=== PATIENT | male | born 1995 | race Caucasian/White ===

== ENCOUNTER 2017-10-18 00:29 | Inpatient (IN) | payer BC ==
--- NOTE | 2017-10-18 00:55 | ED ---
Psychiatric Complaint - HPI Summary HPI Summary: This patient is a 21 year old M presenting to [facility] with a chief complaint of SI without a plan since 0000. 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 Pt endorses taking 1 pill that he states is melatonin. Pt endorses that he wants bloodwork one. Pt denies PMHx SI and SIB. Pt A&O x3. Pt endorses using marijuana today. - History Of Current Complaint Chief Complaint: EDMentalHealth Time Seen by Provider: 10/18/17 00:48 Hx Obtained From: Patient Onset/Duration: Still Present Timing: Constant Severity Initially: Mild Severity Currently: Mild Character: Anxious Aggravating Factor(s): Recent Stress Alleviating Factor(s): Nothing Associated Signs And Symptoms: Positive: Negative Has Suicidal: Reports: Thoughts Has Homicidal: Denies: Thoughts Recent Stressor(s): School Ingestion History: Type/Name Of Drug - Marijuana, Amount Ingested - unknown, Approximate Time Of Ingestion - This PM, no more details - Allergies/Home Medications Allergies/Adverse Reactions: Allergies Allergy/AdvReac Type Severity Reaction Status Date / Time Penicillins Allergy Unknown Verified 10/18/17 00:57 Reaction Details Home Medications: Home Medications NK [No Home Medications Reported] 10/18/17 [History Confirmed 10/18/17] PMH/Surg Hx/FS Hx/Imm Hx Endocrine/Hematology History: Denies: Hx Sickle Cell Disease Cardiovascular History: Denies: Hx Myocardial Infarction Respiratory History: Denies: Hx Lung Cancer History: Denies: Hx Dialysis Musculoskeletal History: Denies: Hx Osteoporosis Sensory History: Denies: Hx Legally Blind, Hx Deafness Opthamlomology History: Denies: Hx Legally Blind EENT History: Denies: Hx Deafness Neurological History: Denies: Hx CVA Psychiatric History: Denies: Hx Suicide Attempt - Family History Known Family History: Negative: Blood Disorder - Social History Occupation: Student Lives: Dormitory/Roommates Hx Substance Use: Yes Substance Use Type: Reports: Marijuana Review of Systems Negative: Fever Positive: no symptoms reported Positive: Anxious, Depressed, Other - SI All Other Systems Reviewed And Are Negative: Yes Physical Exam - Summary Physical Exam Summary: Appearance: Well-appearing, Well-nourished, lying in bed comfortably Skin: Warm, dry, no obvious rash Eyes: sclera anicteric, no conjunctival pallor ENT: mucous membranes moist, pharynx appears normal Neck: Supple, nontender Respiratory: Clear to auscultation, no signs of respiratory distress Cardiovascular: Normal S1, S2. No murmurs. Normal distal pulses in tibial and radial bilaterally. Abdomen: Soft, nontender, normal active bowel sounds present Musculoskeletal: Normal, Strength/ROM Intact Neurological: A&Ox3, awake and alert, mentation is normal, speech is fluent and appropriate Psychiatric: affect is very flat, latencies in speech Triage Information Reviewed: Yes Vital Signs Reviewed: Yes Diagnostics - Laboratory Result Diagrams: 10/18/17 00:57 10/18/17 00:57 Lab Statement: Any lab studies that have been ordered have been reviewed, and results considered in the medical decision making process. Course/Dx - Course Course Of Treatment: Patient is medically cleared for mental health evaluation - Differential Dx/Clinical Impression Provider Diagnosis: Psychosis Discharge - Sign-Out/Discharge Documenting (check all that apply): Patient Departure - Discharge Plan Condition: Guarded Disposition: [facility]YCHIATRIC FACILITY-[facility] Referrals: No Primary Care Phys,NOPCP [Primary Care Provider] - - Billing Disposition and Condition Condition: GUARDED Disposition: Psychiatric Facility [facility] - Attestation Statements Document Initiated by Scribe: Yes Documenting Scribe: Jarad Villagomez Provider For Whom Maco is Documenting (Include Credential): Dr. Oscar Mcbride MD Scribe Attestation: Jarad Mancia scribed for Dr. Oscar Mcbride MD on 10/18/17 at 0701. Scribe Documentation Reviewed: Yes Provider Attestation: The documentation as recorded by the Jarad de león accurately reflects the service I personally performed and the decisions made by me, Dr. Oscar Mcbride MD
[2017-10-18 01:02] LABS: ABS Basophils 0 10^3/ul (0-0.2); ABS Eosinophils 0.1 10^3/ul (0-0.6); ABS Lymphocytes 1.2 10^3/ul (1.0-4.8); ABS Monocytes 0.8 10^3/ul (0-0.8); ABS Neutrophils 7.1 10^3/ul (1.5-7.7); ABS Nucleated RBC 0 10^3/ul; Eosinophil % 0.8 % (0-6); Hematocrit 43 % (42-52); Lymphocyte % 12.8 % (25-47); Mean Corpuscular HGB Conc 35 g/dl (31-36); Mean Corpuscular Hemoglobin 31 pg (27-31); Mean Corpuscular Volume 87 fL (80-94); Mean Platelet Volume 9.2 um3 (7.4-10.4); Nucleated Red Blood Cells % 0.1; Platelet Count 223 10^3/ul (150-450); Red Cell Distribution Width 13 % (10.5-15); White Blood Count 9.2 10^3/ul (3.5-10.8)
[2017-10-18 01:19] LABS: EGFR Non-African American 96.3 (>60)
--- NOTE | 2017-10-18 08:43 | PN ---
ED Flex Patient Progress Note Subjective: This is a 21 year-old M who is pending admission to [facility] secondary to SI in the face of stress at [employer] ( sophomore). No plan. . Pt offers no complaints at this time. He has eaten breakfast and had snacks/ drinks. His Potassium was a little low on initial labs however seeing his recent food intake and lack of sx (ie. cramping, CP), will refrain from K + replacement. Objective: Vitals: Most recent vital signs documented below. General NAD, Alert and oriented x3. Heart: rrr, S1/S2 Lungs: CTa, BREATHING EASILY AB: soft, NTTP, +BS INteg: warm, dry - no signs of injury EL: moving well PSYCH: low mood but polite, pleasant and cooperative Laboratory: Current laboratory results documented below. Assessment: SI w/ stress Plan: Pending psychiatric admit here pending opening on floor. Will follow up daily _while in ED____. Vital Signs Temp Pulse Resp BP Pulse Ox 99.1 F 99 17 144/92 98 10/18/17 07:05 10/18/17 07:05 10/18/17 07:05 10/18/17 07:05 10/18/17 07:05 Lab Results - Entire Visit 10/18/17 10/18/17 10/18/17 01:22 00:57 00:57 WBC 9.2 RBC 4.90 Hgb 15.0 Hct 43 MCV 87 MCH 31 MCHC 35 RDW 13 Plt Count 223 MPV 9.2 Neut % (Auto) 76.9 Lymph % (Auto) 12.8 L [place] % (Auto) 9.0 H Eos % (Auto) 0.8 Baso % (Auto) 0.5 Absolute Neuts (auto) 7.1 Absolute Lymphs (auto) 1.2 Absolute Monos (auto) 0.8 Absolute Eos (auto) 0.1 Absolute Basos (auto) 0 Absolute Nucleated RBC 0 Nucleated RBC % 0.1 Sodium 139 Potassium 3.2 L Chloride 106 Carbon Dioxide 26 Anion Gap 7 BUN 14 Creatinine 1.00 Est GFR ( Amer) 116.5 Est GFR (Non-Af Amer) 96.3 BUN/Creatinine Ratio 14.0 Glucose 145 H Calcium 9.6 Total Bilirubin 0.70 AST 17 ALT 20 Alkaline Phosphatase 59 Total Protein 6.7 Albumin 4.5 Globulin 2.2 Albumin/Globulin Ratio 2.0 Urine Opiates Screen None detected Acetaminophen < 15 Ur Barbiturates Screen None detected Ur Phencyclidine Scrn None detected Ur Amphetamines Screen None detected U Benzodiazepines Scrn None detected Urine Cocaine Screen None detected U Cannabinoids Screen None detected Serum Alcohol < 10
[2017-10-18] MEDS ORDERED: Acetaminophen TAB* 325 MG PO PRN (10:42)
[2017-10-18] MEDS ORDERED: Al Hydrox/Mg Hydrox/Simet LIQ* 30 ML UDC PO PRN (10:42)
[2017-10-18] MEDS: LORazepam TAB(*) 1 MG PO PRN (13:30)
[2017-10-18] MEDS: Divalproex ER TAB(*) 500 MG PO SCH (21:00)
[2017-10-18] MEDS: risperiDONE TAB* 1 MG PO SCH (21:01)
[2017-10-19] MEDS ORDERED: diPHENhydraMINE PO* 25 MG PO PRN (10:38)
[2017-10-19] MEDS ORDERED: diPHENhydraMINE PO* 25 MG ONE (10:58)
--- NOTE | 2017-10-19 18:14 | HP ---
HISTORY AND PHYSICAL: DATE OF ADMISSION: 10/18/17 PROVIDER: Stacey Gamino NP, in Psychiatry SUPERVISING PHYSICIAN: Chintan Gomez MD * (DICTATED BY STACEY GAMINO NP ) JUSTIFICATION FOR ADMISSION: The patient is in need of 24-hour supervision and care secondary to suicidal ideation and disorganization. CHIEF COMPLAINT: "You don't think I know who my biological parents are, do you? 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 David goes by the name, Kehinde. Kehinde states that he has been up for several days in a row 3 to 4 days. He has had no sleep and he states that he has felt more energy at that time. He declares he has "bipolarish symptoms." He tells a very confused story including taking a pill, which he states was melatonin and getting no ability to sleep. He is suspicious and paranoid. It is difficult to get information out of him because he is largely unwilling to speak to me and he contradicts the information that is gathered from the emergency department. Kehinde apparently reported in the past that he has had suicidal ideations at the age 18. He reported that in the emergency department, but denied it on the unit. He states he feels safe here. He is bizarre and somewhat disorganized. He is pleasant enough, but gets irritable rapidly. He is highly anxious. He is describing manic symptoms quite adequately on his own, like not sleeping, having lots of energy, not feeling tired. It appears that that episode is over as he is now anxious and sleepy and is trying to sleep at this time. When attempting to give him Benadryl to help him sleep, he became very wary and concerned about that and refused it. PAST PSYCHIATRIC HISTORY: Kehinde reports that last year he had a manic episode that went untreated. I am looking forward to talking to his parents in order to see about further information. SUBSTANCE ABUSE HISTORY: He denies alcohol and cigarettes. States that he does smoke marijuana, but his drug screen was negative for that. PAST MEDICAL HISTORY: He has not disclosed any of that. FAMILY HISTORY: Again, I am waiting to see his mother and father. SOCIAL HISTORY: He was born in [place], [place] and moved around that area and now lives in a smaller town in [place]. He is a sophomore at [employer]. He appears to be somewhat intimidated by his peers, but that is not clear at this point. REVIEW OF SYMPTOMS: The patient reports feeling fatigued. He denies shortness of breath, heat or cold intolerance, chest pain, or abdominal pain. He denies neurological symptoms. He denies fevers or changes in weight. PHYSICAL EXAMINATION VITAL SIGNS: On 10/18/17, at 1304, his temperature was 98.3, pulse 113, respirations 16, O2 sat 95%, blood pressure 148/99, which did come down on 10/19, at 8 in the morning to 121/75. For further exam data, please see the emergency department records. LABORATORY DATA: Laboratory data is largely within normal limits. The only relevant exceptions would be lymphocyte percentage is low at 12.8 and monocyte percentage is high at 9, potassium is low at 3.2. Incidentally, his hemoglobin A1c is 4.9. His triglycerides are 80, cholesterol 136, LDL cholesterol 84, HDL cholesterol 35.9. I do not see a TSH and I will order that. MENTAL STATUS EXAMINATION: This is a tall, slim, young man with naida hair, who is generally cooperative, but gets frightened. He is calm, but scared. His speech is of normal rate, tone, and volume. He is dysthymic. He has a constricted affect. His thought process seems to be logical, but delusions are present. He states he is not homicidal. He denies suicidality, but he did endorse it in the emergency department. He may be having hallucinations, it is unclear at this time. His insight is fair. His judgement is fair. He is alert and oriented x3. DIAGNOSIS: Bentley I: Bipolar disorder type 1. IMPRESSION: This is a 21-year-old young man who is from [place], who comes to [employer] and has a second manic episode in about a year, this time requiring treatment. PLAN: The patient is admitted to the adult behavioral health unit and placed on q.15-minute checks for his own safety. Kehinde is encouraged to participate in supportive milieu, individual, and group therapy. Estimated length of stay is 5 to 7 days. We will titrate medications to efficacy and monitor for mood and thought content. Discharge planning will include family involvement and outpatient providers. STACEY GAMINO NP [id number]/CPS #: [id number] SANGITA
[2017-10-19] MEDS: risperiDONE TAB* 1 MG PO SCH (21:13)
[2017-10-19] MEDS: Divalproex ER TAB(*) 500 MG PO SCH (21:13)
[2017-10-20] MEDS: LORazepam TAB(*) 1 MG PO PRN (09:16)
--- NOTE | 2017-10-20 17:39 | PN ---
Subjective - Subjective Date of Service: 10/20/17 Service Type: 25222 Hosp care 25 min moderate complexity Subjective: Met with "Kehinde's" parents at length and with Kehinde and his parents together for a shorter time. Kehinde remains disorganized, but he seems to settle and become more relaxed with their presence. He was seen spending time with another patient, "Yesenia," for some time and seemed happy and to be having a good time. Kehinde is not always on target with conversation, but he is less suspicious and paranoid than he was initially. Objective - Appearance Appearance: Healthy Appearing Dysmorphic Features: No Hygiene: Normal Grooming: Fairly Well Kept - Behavior Psychomotor Activities: Normal Exhibits Abnormal Movement: No - Attitude and Relatedness Attitude and Relatedness: Psychotically Related Eye Contact: Good - Speech Quality: Unpressured Latencies: Short Quantity: Terse - Mood Patient's Decription of Mood: "Good" - Affect Observed Affect: Good Affect Consistent with: Euthymia - Thought Process Patient's Thought Process: Disorganized Thought Content: No Passive Wish, No Suicidal Planning, No Homicidal Ideation, No Paranoid Ideation - Sensorium Experiencing Hallucinations: No, Sensorium is Clear Type of Hallucinations: Visual: No, Auditory: No, Command: No - Level of Consciousness Level of Consciousness: Alert Orientation: Yes Intact, Yes Orientated to Time, Yes Orientated to Place, Yes Orientated to Person - Impulse Control Impulse Control: Impaired - Insight and Judgement Insight and Judgement: Impaired - Group Participation Particating in Group Activities: No - Medication Management Medication Management Adherence: Yes - Additional Observations Comments: "Kehinde" is happy and eager to be with his family. He is taking medications appropriately and seems to understand their purpose, at least on a superficial level. Assessment - Assessment Merits Inpatient Hospitalization: For Immediate Safety Inpatient DSM-V Dx: F31.2 Clinical Impression: Kehinde, while pleasant, is clearly psychotic. He has improved with sleep and medication, but still requires hospitalization until the psychosis resolves and he can be relied upon to be able to make decisions clearly. He is currently lacking insight and judgment and has made disorganized decisions, such as walking into a patent's room in the middle of the night and watching her. Plan - Plan Treatment Plan: Name: ELENA CUELLAR Birthdate: 1995 [id number] Medications: Current Medications Acetaminophen (Tylenol Tab*) 650 mg PO Q4H PRN PRN Reason: for pain; or Temp >101 F Al Hydrox/Mg Hydrox/Simethicone (Maalox Plus*) 30 ml PO Q4H PRN PRN Reason: INDIGESTION Diphenhydramine HCl (Benadryl Po*) 25 mg PO Q4H PRN PRN Reason: ANXIETY Divalproex Sodium (Depakote Er Tab(*)) 1,000 mg PO BEDTIME [facility] Lorazepam (Ativan Tab(*)) 1 mg PO Q6H PRN PRN Reason: ANXIETY Last Admin: 10/18/17 13:30 Dose: 1 mg Risperidone (Risperdal*) 2 mg PO BEDTIME [facility] - Discharge Plan Discharge Plan: Outpatient Follow Up Additional Comments: After speaking with Kehinde's parents, it is clear that they are eager to take him home to [place]. It is important for Kehinde to improve before he goes, however, so a certain discharge date is impossible to establish at this time. In the meantime, medication dosages will be increased to 1000 mg of Depakote and 2 mg of Risperdal.
[2017-10-20] MEDS: Divalproex ER TAB(*) 500 MG PO SCH (21:21)
[2017-10-20] MEDS: risperiDONE TAB* 1 MG PO SCH (21:22)
--- NOTE | 2017-10-21 16:11 | PN ---
Subjective - Subjective Date of Service: 10/21/17 Service Type: 18687 Hosp care 35 min high complexity Subjective: Kehinde is reticent to discuss his true feelings with me, his parents, or Candace Umana LCSW. To the rest of the staff, however, he is much more willing to reveal that he continues to hear voices and think of suicide. He did try to wander into another patient's room last night and the constant observation continues related to that level of disorganization. Objective - Appearance Appearance: Healthy Appearing Dysmorphic Features: No Hygiene: Normal Grooming: Fairly Well Kept - Behavior Psychomotor Activities: Normal Exhibits Abnormal Movement: No - Attitude and Relatedness Attitude and Relatedness: Psychotically Related Eye Contact: Good - Speech Quality: Unpressured Latencies: Short Quantity: Terse - Mood Patient's Decription of Mood: "Okay" - Affect Observed Affect: Fair Affect Consistent with: Dysphoria - Thought Process Patient's Thought Process: Disorganized Thought Content: Yes Passive Wish, Yes Suicidal Planning, Yes Paranoid Ideation, No Homicidal Ideation - Sensorium Experiencing Hallucinations: No, Sensorium is Clear Type of Hallucinations: Visual: No, Auditory: Yes, Command: Yes - Level of Consciousness Level of Consciousness: Alert Orientation: Yes Intact, Yes Orientated to Time, Yes Orientated to Place, Yes Orientated to Person - Impulse Control Impulse Control: Impaired - Insight and Judgement Insight and Judgement: Poor - Group Participation Particating in Group Activities: No - Medication Management Medication Management Adherence: Yes - Additional Observations Comments: "Kehinde" is seclusive to his room. He is resting most of the day. He appears to be a bit sad and perhaps frightened today. Assessment - Assessment Merits Inpatient Hospitalization: For Immediate Safety Inpatient DSM-V Dx: F31.2 Clinical Impression: Kehinde, while pleasant, is clearly psychotic. He has improved with sleep and medication, but still requires hospitalization until the psychosis resolves and he can be relied upon to be able to make decisions clearly. He is currently lacking insight and judgment and has made disorganized decisions. His progress throughout the next few days will be monitored. Although his parents would like to take him home, erring on the side of caution and considering the acuity of Kehinde's illness at this time, we will keep him in the hospital. Plan - Plan Treatment Plan: Name: ELENA CUELLAR Birthdate: 1995 [id number] Medications: Current Medications Acetaminophen (Tylenol Tab*) 650 mg PO Q4H PRN PRN Reason: for pain; or Temp >101 F Al Hydrox/Mg Hydrox/Simethicone (Maalox Plus*) 30 ml PO Q4H PRN PRN Reason: INDIGESTION Diphenhydramine HCl (Benadryl Po*) 25 mg PO Q4H PRN PRN Reason: ANXIETY Divalproex Sodium (Depakote Er Tab(*)) 1,000 mg PO BEDTIME [facility] Last Admin: 10/20/17 21:21 Dose: 1,000 mg Lorazepam (Ativan Tab(*)) 1 mg PO Q6H PRN PRN Reason: ANXIETY Last Admin: 10/18/17 13:30 Dose: 1 mg Risperidone (Risperdal*) 2 mg PO BEDTIME [facility] Last Admin: 10/20/17 21:22 Dose: 2 mg - Discharge Plan Discharge Plan: Outpatient Follow Up Additional Comments: After speaking with Kehinde's parents, it is clear that they are eager to take him home to [place]. It is important for Kehinde to improve before he goes, however, so a certain discharge date is impossible to establish at this time. Kehinde's parents are on board with keeping him until it is safe to travel and keep him at home.
[2017-10-21] MEDS: risperiDONE TAB* 1 MG PO SCH (21:50)
[2017-10-21] MEDS: Divalproex ER TAB(*) 500 MG PO SCH (21:51)
[2017-10-22] MEDS ORDERED: Ibuprofen TAB* 400 MG PO PRN (11:02)
--- NOTE | 2017-10-22 11:46 | PN ---
Subjective - Subjective Date of Service: 10/22/17 Service Type: 67875 Hosp care 15 min low complexity Subjective: Met briefly with Kehinde twice. he is disorganized and reports he doesn't feel well. He seems to struggle to find words and express what concepts are in his head. We sent him to get an MRI, but he could not tolerate the noise and possibly the enclosure. Kehinde is struggling with anxiety, allergies, and insomnia. Objective - Appearance Appearance: Healthy Appearing Dysmorphic Features: No Hygiene: Normal Grooming: Fairly Well Kept - Behavior Psychomotor Activities: Normal Exhibits Abnormal Movement: No - Attitude and Relatedness Attitude and Relatedness: Psychotically Related Eye Contact: Good - Speech Quality: Unpressured Latencies: Short Quantity: Terse - Mood Patient's Decription of Mood: not good - Affect Observed Affect: Depressed Affect Consistent with: Dysphoria - Thought Process Patient's Thought Process: Disorganized Thought Content: Yes Passive Wish, Yes Suicidal Planning, No Homicidal Ideation, No Paranoid Ideation - Sensorium Type of Hallucinations: Auditory: Yes - yesterday. He has not answered today., Command: Yes - Level of Consciousness Level of Consciousness: Alert Orientation: Yes Intact, Yes Orientated to Time, Yes Orientated to Place, Yes Orientated to Person - Impulse Control Impulse Control: Impaired - Insight and Judgement Insight and Judgement: Impaired - Group Participation Particating in Group Activities: No - Medication Management Medication Management Adherence: Yes - Additional Observations Comments: "Kehinde" is seclusive to his room. He is resting most of the day. He was visited by his parents. He continues to be psychotic. He is also depressed. He is not able to answer me about his level of depression and if he is planning for suicide, but he was able to converse with other staff members yesterday and conveyed that message. Assessment - Assessment Merits Inpatient Hospitalization: For Immediate Safety, For Discharge Planning Inpatient DSM-V Dx: F31.2 Clinical Impression: Kehinde, while pleasant, is clearly psychotic. He has improved with sleep and medication, but still requires hospitalization until the psychosis resolves and he can be relied upon to be able to make decisions clearly. He is currently lacking insight and judgment and has made disorganized decisions. His progress throughout the next few days will be monitored. Although his parents would like to take him home, erring on the side of caution and considering the acuity of Kehinde's illness at this time, we will keep him in the hospital. He continues to struggle with complex questions and has an anxious affect. Plan - Plan Treatment Plan: Name: ELENA CUELLAR Birthdate: 1995 [id number] Continued Medication Management: Different Medication Medications: Current Medications Acetaminophen (Tylenol Tab*) 650 mg PO Q4H PRN PRN Reason: for pain; or Temp >101 F Al Hydrox/Mg Hydrox/Simethicone (Maalox Plus*) 30 ml PO Q4H PRN PRN Reason: INDIGESTION Diphenhydramine HCl (Benadryl Po*) 25 mg PO Q4H PRN PRN Reason: ANXIETY Divalproex Sodium (Depakote Er Tab(*)) 1,000 mg PO BEDTIME ON LICENSE OF [facility] Last Admin: 10/21/17 21:51 Dose: 1,000 mg Ibuprofen (Motrin Tab*) 400 mg PO Q6H PRN PRN Reason: PAIN Lorazepam (Ativan Tab(*)) 1 mg PO Q6H PRN PRN Reason: ANXIETY Last Admin: 10/18/17 13:30 Dose: 1 mg Paliperidone (Invega Er Tab*) 6 mg PO BEDTIME [facility] - Discharge Plan Discharge Plan: Outpatient Follow Up Additional Comments: After speaking with Kehinde's parents, it is clear that they are eager to take him home to [place]. It is important for Kehinde to improve before he goes, however, so a certain discharge date is impossible to establish at this time. Kehinde's parents are on board with keeping him until it is safe to travel and keep him at home. Today, we will change medications and begin Invega 6 mg, a more aggressive approach that might bring Kehinde closer to his baseline. In addition, as Kehinde has complained of allergy symptoms, anxiety, and insomnia, we will increase Benadryl to 50 mg Q4 hours.
[2017-10-22] MEDS ORDERED: diPHENhydraMINE PO* 25 MG PO PRN (12:46)
[2017-10-22] MEDS: Paliperidone ER TAB* 6 MG TAB.ER PO SCH (21:23)
[2017-10-22] MEDS: Divalproex ER TAB(*) 500 MG PO SCH (21:23)
[2017-10-22] MEDS ORDERED: Magnesium CITRATE* 300 ML BTL PO ONE (21:30)
[2017-10-23] MEDS: Docusate CAP* 100 MG PO SCH ×2 (07:21→09:20)
--- NOTE | 2017-10-23 17:15 | PN ---
Subjective - Subjective Date of Service: 10/23/17 Service Type: [id number] Hosp care 15 min low complexity Subjective: Kehinde doesn't appear to have improve. He is in bed most of the time and reports that he is depressed, anxious and contemplating to strangulate self to . Also hearing his parents voices telling him something that he cannot articulate. Says he couldn't sleep last night. His stomach is hurting. On exam the epigastric area is tender. Maalox was given and Nursing will place him on continuous obs. Objective - Appearance Appearance: Healthy Appearing Dysmorphic Features: No Hygiene: Normal Grooming: Fairly Well Kept - Behavior Psychomotor Activities: Abnormal-Decreased Exhibits Abnormal Movement: No - Attitude and Relatedness Attitude and Relatedness: Superficially Cooperative Eye Contact: Poor - Speech Quality: Unpressured Latencies: Long Quantity: Terse - Mood Patient's Decription of Mood: "Anxious" - Affect Observed Affect: Depressed Affect Consistent with: Dysphoria - Thought Process Patient's Thought Process: Coherent, Circumstantial, Impoverished Thought Content: Yes Passive Wish, Yes Suicidal Planning - strangulate self, No Homicidal Ideation, No Paranoid Ideation - Sensorium Experiencing Hallucinations: Yes Type of Hallucinations: Visual: No, Auditory: Yes, Command: No - Level of Consciousness Level of Consciousness: Alert Orientation: Yes Intact, Yes Orientated to Time, Yes Orientated to Place, Yes Orientated to Person - Impulse Control Impulse Control: Tenuous - Insight and Judgement Insight and Judgement: Poor - Group Participation Particating in Group Activities: No - Medication Management Medication Management Adherence: Yes Assessment - Assessment Merits Inpatient Hospitalization: For Immediate Safety, For Stabilization, Pending Safe DC Plan Inpatient DSM-V Dx: F31.2 Clinical Impression: Still severely depressed with suicidal thoughts and plan. Not safe for discharge. Plan - Plan Treatment Plan: Name: ELENA CUELLAR Birthdate: 1995 [id number] Continued Medication Management: Continue Outpt Medication Medications: Current Medications Acetaminophen (Tylenol Tab*) 650 mg PO Q4H PRN PRN Reason: for pain; or Temp >101 F Al Hydrox/Mg Hydrox/Simethicone (Maalox Plus*) 30 ml PO Q4H PRN PRN Reason: INDIGESTION Diphenhydramine HCl (Benadryl Po*) 50 mg PO Q4H PRN PRN Reason: Anxiety/allergies/sleep Last Admin: 10/23/17 13:47 Dose: 50 mg Divalproex Sodium (Depakote Er Tab(*)) 1,000 mg PO BEDTIME [facility] Last Admin: 10/22/17 21:23 Dose: 1,000 mg Divalproex Sodium (Depakote Er Tab(*)) 250 mg PO BEDTIME [facility] Docusate Sodium (Colace Cap*) 100 mg PO DAILY [facility] Last Admin: 10/23/17 09:20 Dose: Not Given Ibuprofen (Motrin Tab*) 400 mg PO Q6H PRN PRN Reason: PAIN Lorazepam (Ativan Tab(*)) 1 mg PO Q4H PRN PRN Reason: Anxiety/insomnia Paliperidone (Invega Er Tab*) 6 mg PO BEDTIME [facility] Last Admin: 10/22/17 21:23 Dose: 6 mg - Discharge Plan Discharge Plan: Outpatient Follow Up Outpatient Program: Counseling/Psych Services at [place]
[2017-10-23] MEDS: Paliperidone ER TAB* 6 MG TAB.ER PO SCH (20:58)
[2017-10-23] MEDS: LORazepam TAB(*) 1 MG PO PRN (20:58)
[2017-10-23] MEDS ORDERED: Divalproex ER TAB(*) 250 MG PO SCH (21:00)
[2017-10-23] MEDS: Divalproex ER TAB(*) 500 MG PO SCH (22:05)
[2017-10-24] MEDS: Docusate CAP* 100 MG PO SCH (09:54)
[2017-10-24] MEDS: LORazepam TAB(*) 1 MG PO PRN (20:13)
[2017-10-24] MEDS: Divalproex Sprinkle CAP* 125 MG PO SCH (20:14)
[2017-10-24] MEDS: Paliperidone ER TAB* 6 MG TAB.ER PO SCH (20:21)
[2017-10-25] MEDS: Docusate CAP* 100 MG PO SCH (13:32)
[2017-10-25] MEDS: Divalproex Sprinkle CAP* 125 MG PO SCH ×3 (13:32→20:14)
--- NOTE | 2017-10-25 18:02 | PN ---
Subjective - Subjective Date of Service: 10/25/17 Service Type: 72034 Hosp care 15 min low complexity Subjective: Today is out of bed and with his parents. Per Nursing he refused his AM Depakote at first and then took after his parents insisted. He apparently continues to be depressed and suicidal with a plan to strangulate self. Continuous observation is still in place. Objective - Appearance Appearance: Healthy Appearing, Thin Framed Dysmorphic Features: No Hygiene: Normal Grooming: Fairly Well Kept - Behavior Psychomotor Activities: Abnormal-Decreased Exhibits Abnormal Movement: No - Attitude and Relatedness Attitude and Relatedness: Appropriate Eye Contact: Fair - Speech Quality: Unpressured Latencies: Normal Quantity: Appropriate - Mood Patient's Decription of Mood: "Sad" - Affect Observed Affect: Constricted - Thought Process Patient's Thought Process: Coherent, Goal Directed Thought Content: Yes Passive Wish, Yes Suicidal Planning - strangulate self. - Sensorium Experiencing Hallucinations: No, Sensorium is Clear Type of Hallucinations: Visual: No, Auditory: No, Command: No - Level of Consciousness Level of Consciousness: Alert Orientation: Yes Intact, Yes Orientated to Time, Yes Orientated to Place, Yes Orientated to Person - Impulse Control Impulse Control: Tenuous - Insight and Judgement Insight and Judgement: Poor - Group Participation Particating in Group Activities: No - Medication Management Medication Management Adherence: Partial Assessment - Assessment Merits Inpatient Hospitalization: For Immediate Safety, For Stabilization, Pending Safe DC Plan Inpatient DSM-V Dx: F31.2 Clinical Impression: Still severely depressed with suicidal thoughts and plan. Not safe for discharge. Plan - Plan Treatment Plan: Name: ELENA CUELLAR Birthdate: 1995 [id number] Continued Medication Management: Continue Outpt Medication Medications: Current Medications Acetaminophen (Tylenol Tab*) 650 mg PO Q4H PRN PRN Reason: for pain; or Temp >101 F Al Hydrox/Mg Hydrox/Simethicone (Maalox Plus*) 30 ml PO Q4H PRN PRN Reason: INDIGESTION Diphenhydramine HCl (Benadryl Po*) 50 mg PO Q4H PRN PRN Reason: Anxiety/allergies/sleep Last Admin: 10/23/17 13:47 Dose: 50 mg Divalproex Sodium (Depakote Sprinkle Cap*) 375 mg PO TID [facility] Last Admin: 10/25/17 16:26 Dose: 375 mg Docusate Sodium (Colace Cap*) 100 mg PO DAILY [facility] Last Admin: 10/25/17 13:32 Dose: Not Given Ibuprofen (Motrin Tab*) 400 mg PO Q6H PRN PRN Reason: PAIN Lorazepam (Ativan Tab(*)) 1 mg PO Q4H PRN PRN Reason: Anxiety/insomnia Last Admin: 10/24/17 20:13 Dose: 1 mg Paliperidone (Invega Er Tab*) 6 mg PO BEDTIME [facility] Last Admin: 10/24/17 20:21 Dose: 6 mg - Discharge Plan Discharge Plan: Outpatient Follow Up Outpatient Program: [facility]
[2017-10-25] MEDS: Paliperidone ER TAB* 6 MG TAB.ER PO SCH (20:14)
[2017-10-26] MEDS: Divalproex Sprinkle CAP* 125 MG PO SCH ×3 (10:54→20:46)
[2017-10-26] MEDS: Docusate CAP* 100 MG PO SCH (10:54)
[2017-10-26] MEDS ORDERED: ALPRAZolam TAB* 0.5 MG PO ONE (12:54)
--- NOTE | 2017-10-26 14:14 | PN ---
Subjective - Subjective Date of Service: 10/26/17 Service Type: 18093 Hosp care 35 min high complexity Subjective: Met with Kehinde, his parents, and Candace Umana LCSW. Kehinde appears brighter and more coherent for the most part, but then he admits that he is seeing "signs" and "lots of red" which is indicating to him that he needs to leave. In this context, it is difficult to make a plan for him to go home with his parents, although they are very attentive and concerned and eager to take him home. He recently reported that he wanted to strangle himself with a sheet and has been wandering into other people's rooms. He doesn't recall these statements or actions and appears ashamed that they have occurred. Objective - Appearance Appearance: Healthy Appearing Dysmorphic Features: No Hygiene: Normal Grooming: Fairly Well Kept - Behavior Psychomotor Activities: Normal Exhibits Abnormal Movement: No - Attitude and Relatedness Attitude and Relatedness: Psychotically Related Eye Contact: Fair - Speech Quality: Unpressured Latencies: Short Quantity: Terse - Mood Patient's Decription of Mood: "Okay" - Affect Observed Affect: Fair Affect Consistent with: Dysphoria - Thought Process Patient's Thought Process: Coherent, Impoverished Thought Content: Yes Passive Wish, Yes Suicidal Planning, No Homicidal Ideation, No Paranoid Ideation - Sensorium Experiencing Hallucinations: Yes Type of Hallucinations: Visual: Yes, Auditory: Yes, Command: Yes - Level of Consciousness Level of Consciousness: Alert Orientation: Yes Intact, Yes Orientated to Time, Yes Orientated to Place, Yes Orientated to Person - Impulse Control Impulse Control: Impaired - Insight and Judgement Insight and Judgement: Impaired - Group Participation Particating in Group Activities: Yes - Medication Management Medication Management Adherence: Partial - Additional Observations Comments: "Kehinde" is seclusive to his room. He is resting most of the day. He was visited by his parents. He continues to be psychotic. He is also depressed. He states he feels weak and tired. Assessment - Assessment Merits Inpatient Hospitalization: For Immediate Safety, For Stabilization, For Discharge Planning Inpatient DSM-V Dx: F31.2 Clinical Impression: Kehinde, while pleasant, is clearly psychotic and is making suicidal statements at times, especially in the late evening and overnight. He has improved with sleep and medication, but still requires hospitalization until the psychosis resolves and he can be relied upon to be able to make decisions clearly and safely. He is currently lacking insight and judgment and has made disorganized decisions. Although his parents would like to take him home, erring on the side of caution and considering the acuity of Kehinde's illness at this time, we will keep him in the hospital. Plan - Plan Treatment Plan: Name: ELENA CUELLAR Birthdate: 1995 [id number] Medications: Current Medications Acetaminophen (Tylenol Tab*) 650 mg PO Q4H PRN PRN Reason: for pain; or Temp >101 F Al Hydrox/Mg Hydrox/Simethicone (Maalox Plus*) 30 ml PO Q4H PRN PRN Reason: INDIGESTION Diphenhydramine HCl (Benadryl Po*) 50 mg PO Q4H PRN PRN Reason: Anxiety/allergies/sleep Last Admin: 10/23/17 13:47 Dose: 50 mg Divalproex Sodium (Depakote Sprinkle Cap*) 375 mg PO TID [facility] Last Admin: 10/26/17 10:54 Dose: 375 mg Docusate Sodium (Colace Cap*) 100 mg PO DAILY [facility] Last Admin: 10/26/17 10:54 Dose: 100 mg Ibuprofen (Motrin Tab*) 400 mg PO Q6H PRN PRN Reason: PAIN Lorazepam (Ativan Tab(*)) 1 mg PO Q4H PRN PRN Reason: Anxiety/insomnia Last Admin: 10/24/17 20:13 Dose: 1 mg Lorazepam (Ativan Tab(*)) 2 mg PO BEDTIME [facility] Paliperidone (Invega Er Tab*) 6 mg PO BEDTIME [facility] Last Admin: 10/25/17 20:14 Dose: 6 mg - Discharge Plan Discharge Plan: Outpatient Follow Up Additional Comments: After speaking with Kehinde's parents, it is clear that they are eager to take him home to [place]. It is important for Kehinde to improve before he goes, however, so a certain discharge date is impossible to establish at this time. Kehinde's parents are growing more and more eager to take him home and are continuing to struggle with being away from home and work. Kehinde needs to remain in the hospital until he is no longer expressing suicidal thoughts. An MRI is ordered for today and Ativan 2 mg is ordered at bedtime to increase the likelihood that he will sleep.
--- NOTE | 2017-10-26 18:21 | RAD ---
HISTORY: now onset psychosis COMPARISONS: None TECHNIQUE: The following sequences were obtained of the head: Sagittal T1-weighted images, axial T2-weighted images, axial FLAIR images, axial susceptibility weighted images, axial T1-weighted images. Additionally, axial diffusion-weighted images were obtained with calculated apparent diffusion coefficients.. FINDINGS: HEMORRHAGE/INFARCT: There is no hemorrhage or acute infarct. MASSES/SHIFT: There is no mass or shift. EXTRA-AXIAL SPACES/MENINGES: There are no extra-axial fluid collections. SULCI AND VENTRICLES: The sulci and ventricles are normal in size and position for the patient's stated age. CEREBRUM: There are no focal parenchymal abnormalities. BRAINSTEM: There are no focal parenchymal abnormalities. CEREBELLUM: There are no focal parenchymal abnormalities. The cerebellar tonsils are normal in size and position. SELLA: The sella is normal. PINEAL: The pineal region is clear. CP ANGLE/TEMPORAL BONES: The labyrinthine structures are grossly normal. VESSELS: Normal flow-voids are noted within the visualized vertebral vasculature. DIFFUSION ABNORMALITIES: There are no diffusion abnormalities. PARANASAL SINUSES/MASTOIDS: The paranasal sinuses are clear. ORBITS: The orbits are unremarkable. BONES AND SOFT TISSUE: No bone or soft tissue abnormalities are noted. IMPRESSION: NORMAL MRI OF THE BRAIN.
[2017-10-26] MEDS: LORazepam TAB(*) 1 MG PO SCH (20:46)
[2017-10-26] MEDS: Paliperidone ER TAB* 6 MG TAB.ER PO SCH (20:46)
[2017-10-27] MEDS: Docusate CAP* 100 MG PO SCH (10:00)
[2017-10-27] MEDS: Divalproex Sprinkle CAP* 125 MG PO SCH ×3 (10:00→20:34)
[2017-10-27] MEDS ORDERED: LORazepam TAB(*) 0.5 MG PO SCH (12:00)
--- NOTE | 2017-10-27 14:50 | PN ---
Subjective - Subjective Date of Service: 10/27/17 Service Type: 43153 Hosp care 25 min moderate complexity Subjective: Kehinde is sleepy today, likely due to the low-dose Ativan I ordered for him in an effort to improve his response to Invega. I will discuss with his parents whether they want to go with this plan. Kehinde is improving. He is making logical statements, is comparing today to yesterday, and is remembering what happened in the past few days. Objective - Appearance Appearance: Healthy Appearing Dysmorphic Features: No Hygiene: Normal Grooming: Fairly Well Kept - Behavior Psychomotor Activities: Normal Exhibits Abnormal Movement: No - Attitude and Relatedness Attitude and Relatedness: Psychotically Related Eye Contact: Good - Speech Quality: Unpressured Latencies: Short Quantity: Terse - Mood Patient's Decription of Mood: "Good" - Affect Observed Affect: Fair Affect Consistent with: Dysphoria - Thought Process Patient's Thought Process: Coherent, Goal Directed Thought Content: No Passive Wish, No Suicidal Planning, No Homicidal Ideation, No Paranoid Ideation - Sensorium Experiencing Hallucinations: No, Sensorium is Clear Type of Hallucinations: Visual: No, Auditory: No, Command: No - Level of Consciousness Level of Consciousness: Lethargic Orientation: Yes Intact, Yes Orientated to Time, Yes Orientated to Place, Yes Orientated to Person - Impulse Control Impulse Control: Impaired - Insight and Judgement Insight and Judgement: Poor - Group Participation Particating in Group Activities: Yes - Medication Management Medication Management Adherence: Yes - Additional Observations Comments: "Kehinde" is seclusive to his room. He is resting most of the day. He was visited by his parents. He is improving significantly. He appears brighter and is making more logical sense and has a better grasp of time: the past is more memorable and he is aware of the present. Assessment - Assessment Merits Inpatient Hospitalization: For Immediate Safety, For Discharge Planning Inpatient DSM-V Dx: F31.2 Clinical Impression: Kehinde is improving. The psychosis is lifting significantly and suicidal thoughts are gone. Sharing with news with his parents has been beneficial. Plan - Plan Treatment Plan: Name: ELENA CUELLAR Birthdate: 1995 [id number] Medications: Current Medications Acetaminophen (Tylenol Tab*) 650 mg PO Q4H PRN PRN Reason: for pain; or Temp >101 F Al Hydrox/Mg Hydrox/Simethicone (Maalox Plus*) 30 ml PO Q4H PRN PRN Reason: INDIGESTION Diphenhydramine HCl (Benadryl Po*) 50 mg PO Q4H PRN PRN Reason: Anxiety/allergies/sleep Last Admin: 10/23/17 13:47 Dose: 50 mg Divalproex Sodium (Depakote Sprinkle Cap*) 375 mg PO TID [facility] Last Admin: 10/27/17 14:28 Dose: Not Given Docusate Sodium (Colace Cap*) 100 mg PO DAILY [facility] Last Admin: 10/27/17 10:00 Dose: 100 mg Ibuprofen (Motrin Tab*) 400 mg PO Q6H PRN PRN Reason: PAIN Lorazepam (Ativan Tab(*)) 2 mg PO BEDTIME [facility] Last Admin: 10/26/17 20:46 Dose: 2 mg Lorazepam (Ativan Tab(*)) 0.5 mg PO 0800,1200,1800 [facility] Last Admin: 10/27/17 12:39 Dose: 0.5 mg Paliperidone (Invega Er Tab*) 6 mg PO BEDTIME [facility] Last Admin: 10/26/17 20:46 Dose: 6 mg - Discharge Plan Discharge Plan: Outpatient Follow Up Additional Comments: After speaking with Kehinde's parents, it is clear that they are eager to take him home to [place]. It is important for Kehinde to improve before he goes. He slept well last night and is resting more comfortably, which brings us closer to discharge for Wednesday.
--- NOTE | 2017-10-27 15:58 | PN ---
[facility]: Group Therapy Note - Service Type Service Type: 24612 Group Psychotherapy - Medication Education group: Patient present at the end of group. He was grossly disorganized and off-topic.
[2017-10-27] MEDS: LORazepam TAB(*) 1 MG PO SCH (20:35)
[2017-10-27] MEDS: Paliperidone ER TAB* 6 MG TAB.ER PO SCH (20:35)
[2017-10-28] MEDS: LORazepam TAB(*) 0.5 MG PO SCH ×2 (08:36→16:06)
[2017-10-28] MEDS: Divalproex Sprinkle CAP* 125 MG PO SCH ×3 (08:37→21:16)
[2017-10-28] MEDS: Docusate CAP* 100 MG PO SCH (08:37)
--- NOTE | 2017-10-28 11:39 | PN ---
Subjective - Subjective Date of Service: 10/28/17 Service Type: 02460 Hosp care 35 min high complexity Subjective: Kehinde is significantly improved. He is delighted to learn that he will be going home tomorrow. There were no strange incidents overnight with Kehinde wandering into other people's rooms. He has been well related and cheerful, while sleepy, too. Objective - Appearance Appearance: Healthy Appearing Dysmorphic Features: No Hygiene: Normal Grooming: Fairly Well Kept - Behavior Psychomotor Activities: Normal Exhibits Abnormal Movement: No - Attitude and Relatedness Attitude and Relatedness: Well Related Eye Contact: Good - Speech Quality: Unpressured Latencies: Normal Quantity: Appropriate - Mood Patient's Decription of Mood: "Great" - Affect Observed Affect: Good Affect Consistent with: Euthymia - Thought Process Patient's Thought Process: Coherent, Goal Directed Thought Content: No Passive Wish, No Suicidal Planning, No Homicidal Ideation, No Paranoid Ideation - Sensorium Experiencing Hallucinations: No, Sensorium is Clear Type of Hallucinations: Visual: No, Auditory: No, Command: No - Level of Consciousness Level of Consciousness: Alert Orientation: Yes Intact, Yes Orientated to Time, Yes Orientated to Place, Yes Orientated to Person - Impulse Control Impulse Control: Intact - Insight and Judgement Insight and Judgement: Fair - Group Participation Particating in Group Activities: Yes - Medication Management Medication Management Adherence: Yes - Additional Observations Comments: Kehinde has done well today. He is happy to be going home. He demonstrates fair to good insight into his situation and is preparing to take care of himself in the future. Assessment - Assessment Merits Inpatient Hospitalization: For Immediate Safety, For Stabilization Inpatient DSM-V Dx: F31.2 Clinical Impression: Kehinde is much closer to baseline and his safety is significantly improved. He is able to interact more appropriately and has made decisions with his family that will support his further improvement in the outpatient setting. Plan - Plan Treatment Plan: Name: ELENA CUELLAR Birthdate: 1995 [id number] Medications: Current Medications Acetaminophen (Tylenol Tab*) 650 mg PO Q4H PRN PRN Reason: for pain; or Temp >101 F Al Hydrox/Mg Hydrox/Simethicone (Maalox Plus*) 30 ml PO Q4H PRN PRN Reason: INDIGESTION Diphenhydramine HCl (Benadryl Po*) 50 mg PO Q4H PRN PRN Reason: Anxiety/allergies/sleep Last Admin: 10/23/17 13:47 Dose: 50 mg Divalproex Sodium (Depakote Sprinkle Cap*) 375 mg PO 0800,1200,2100 [facility] Last Admin: 10/28/17 08:37 Dose: 375 mg Docusate Sodium (Colace Cap*) 100 mg PO DAILY [facility] Last Admin: 10/28/17 08:37 Dose: 100 mg Ibuprofen (Motrin Tab*) 400 mg PO Q6H PRN PRN Reason: PAIN Lorazepam (Ativan Tab(*)) 2 mg PO BEDTIME [facility] Last Admin: 10/27/17 20:35 Dose: 2 mg Lorazepam (Ativan Tab(*)) 0.5 mg PO 0800,1200 [facility] Last Admin: 10/28/17 08:36 Dose: 0.5 mg Paliperidone (Invega Er Tab*) 6 mg PO BEDTIME [facility] Last Admin: 10/27/17 20:35 Dose: 6 mg - Discharge Plan Discharge Plan: Outpatient Follow Up Additional Comments: Kehinde will be leaving tomorrow morning and will return to [place] with his parents. He will engage in outpatient therapy and medication treatment close to his home. He has determined that at this time [facility] is not a good match for him and his parents support him in that. Discharge is scheduled for tomorrow morning at 11.
[2017-10-28] MEDS ORDERED: LORazepam TAB(*) 1 MG PO SCH (21:00)
[2017-10-28] MEDS: Paliperidone ER TAB* 6 MG TAB.ER PO SCH (21:15)
[2017-10-29 08:04] VITALS: BP 123/76
[2017-10-29] MEDS ORDERED: LORazepam TAB(*) 0.5 MG PO SCH (09:00)
[2017-10-29] MEDS: Divalproex Sprinkle CAP* 125 MG PO SCH (09:16)
[2017-10-29] MEDS: Docusate CAP* 100 MG PO SCH (09:17)
--- NOTE | 2017-10-29 16:15 | DCNOTE ---
Subjective - Subjective Service Types: [id number] [facility] Day Mgmt simple under 30 min Discharge Date: 10/29/17 Subjective: Patient was seen by self, met with parents, discussed with treatment team, chart was reviewed. Patient has been scheduled for discharge this morning. Patient has been compliant with his medications, no reported side effects. Patient reports improvement in his symptoms. Patient sleeping has been fair. Patient eating has been good. Patient has been cooperative with staff. Patient behavior has been in control. Patient mood was more stable. Patient has been reporting no suicidal or homicidal ideation. No psychotic symptoms of delusions or hallucinations. Objective - Appearance Appearance: Healthy Appearing Dysmorphic Features: No Hygiene: Normal Grooming: Fairly Well Kept - Behavior Psychomotor Activities: Normal Exhibits Abnormal Movement: No - Attitude and Relatedness Attitude and Relatedness: Cooperative Eye Contact: Fair - Speech Quality: Unpressured Latencies: Normal Quantity: Terse - Mood Patient's Decription of Mood: "Good" - Affect Observed Affect: Fair Affect Consistent with: Euthymia - Thought Process Patient's Thought Process: Goal Directed Thought Content: No Passive Wish, No Suicidal Planning, No Homicidal Ideation, No Paranoid Ideation - Sensorium Experiencing Hallucinations: No, Sensorium is Clear Type of Hallucinations: Visual: No, Auditory: No, Command: No - Level of Consciousness Level of Consciousness: Alert Orientation: Yes Intact, Yes Orientated to Time, Yes Orientated to Place, Yes Orientated to Person - Impulse Control Impulse Control: Intact - Insight and Judgement Insight and Judgement: Fair - Group Participation Particating in Group Activities: Yes - Medication Management Medication Management Adherence: Yes DC Assessment - Assessment Clinical Impression: Kehinde is much closer to baseline and his safety is significantly improved. He is able to interact more appropriately and has made decisions with his family that will support his further improvement in the outpatient setting. Patient was not a danger to self and others and caring for self, no si/hi, discussed with team and was discharged today with family. Merits Inpatient Hospitalization: No Clear for Discharge: Adequate Clinical Respons, Acceptable Safety Profile, Low Utility of Inpt Care Inpatient DSM-V Dx: F31.2 Discharge Planning - Discharge Planning Discharge Plan: Outpatient Follow Up Recommendations for Continuing Care: Medication Management, Psychotherapy Medications: Depakote ER 1000mg HS Lorazepam (Ativan Tab(*)) 1 mg PO BID PRN anxiety Paliperidone (Invega Er Tab*) 6 mg PO BEDTIME [facility] Discharge Planning: Prescriptions provided for discharge [x] Yes [] No Follow up care details as per social work arrangements. Patient response to discharge plan: [x] eager for discharge [] agreeable with discharge plan [] ambivalent about discharge [] disagrees with discharge today
--- NOTE | 2017-11-01 22:55 | DS ---
DISCHARGE SUMMARY: DATE OF ADMISSION: 10/18/17. DATE OF DISCHARGE: 10/29/17. PROVIDER: Stacey Gamino NP, in Psychiatry. SUPERVISING PHYSICIAN: Dr. Chintan Gomez. DIAGNOSIS: [place] I: Bipolar 1 disorder mixed state, severe with psychotic features. CONDITION AT THE TIME OF DISCHARGE: Kehinde is improved. He is psychiatrically cleared. He is stable . He participated in groups when he was able and was social with peers. His family is agreeable to discharge. He has done well here psychiatrically. He tolerated new medications. He will be attendin therapy and medication management in his home in [facility]. At the time of discharge, Kehinde is calm, cooperative and makes good eye contact. He is alert and orie nted x3. His grooming is good. His speech pace is normal. His thought processes are logical. He is no longer psychotic. He is not delusional. He denies AH, VH, SI, and HI. His insight is good. Hi s judgment is fair. He states he is willing to follow up. DISCHARGE INSTRUCTIONS TO THE PATIENT: A. Medications: Depakote ER 1000 mg at bedtime, Invega 6 mg at bedtime and lorazepam 1 mg, may take 2 mg to sleep at night if required and 0.5 mg for anxiety and agitation during the day. Only 10 tablets were dispensed as I anticipate this to be a short term tr eatment for Kehinde. B. Diet: Regular. C. Activities: As tolerated. Kehinde is a nonsmoker. There are no studies pending at the time of la ibanez. D. Follow-up care: Kehinde will be going to [facility] in [place], [place]. E. Substance abuse follow-up is not indicated. 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 David conde oes by the name, Kehinde. Kehinde states that he has been up for several days in a row that is 3 to 4 da ys. He has had no sleep and he states that he has felt more energy at that time. He declares that he has "bipolarish symptoms." He tells a very confused story including taking a pill, which he states was melatonin and getting no ability to sleep. He is suspicious and paranoid. It is difficult to ge t information out of him because he is largely unwilling to speak to me and he contradicts the inform ation that is gathered from the emergency department. Kehinde apparently reported in the past that he has had suicidal ideations since the age 18. He reported that in the emergency department, but denie d it on the unit. He states he feels safe here. He is bizarre and somewhat disorganized. He is ple asant enough, but gets irritable rapidly. He is highly anxious. He is describing manic symptoms tee te adequately on his own, like not sleeping, having lots of energy, not feeling tired. It appears th at the episode is over as he is now anxious and sleepy and is trying to sleep at this time. When att empting to give him Benadryl to help him sleep, he became very wary and concerned about it and refuse d it. B. Psychiatric treatment was rendered: Kehinde was admitted to the adult behavioral unit and placed o n 15-minute checks for safety. At some point, he was placed on constant observation because he was f ound to be wandering into the other patients's room at night. Kehinde was very confused much of the ti me and did not know what to do or how to behave. He spent most of his time in bed. Kehinde was unable to go to groups as he was too disorganized and too paranoid to spend significant amounts of time wit h other people. He would attempt to comply with our treatment request but eventually could not do so given his level of paranoia. We did offer Kehinde through conversation with his parents the Invega Jameson stenna injection. They are not prepared for that yet and Kehinde was unable to consent on his own. The Depakote we had to change to Depakote Sprinkles 3 times a day from ER at bedtime because he was t oo paranoid to take the full pill at bedtime. His therapeutic Depakote level did not reach 50. It d id hover at 49, but that was when he was taking the Sprinkles and the dose was a little bit lower carloz n 1000 due to the amount of time that he would refuse or not complete taking that medication. He did take Invega very consistently. In order to hasten the process of his wellness, we did use lorazepam to help him sleep and reduce his anxiety. It did help. Once that was began, he fairly rapidly impr parvin. His parents were present on the unit much of the time and they proved to be very calming force for him. He agreed to do much of what was asked of him when they were present. Meeting with his par ents went well. They were agreeable to his staying here and to his discharge. They were excited as was Kehinde to be discharged and to get home. No consults were entered. Kehinde is significantly improv ed over when he arrived at the hospital. He is no longer paranoid. His focus is improved. He appea rs well. He is being discharged home with his parents to go to [facility]. [place], [place] [id number]/CPS #: [id number]
== END 2017-10-29 11:30 | disposition home or self-care (01) | DRG 753 ==
LOC: ED 00:29 → BSU 10:42
PROVIDERS: ADMIT Psychiatry & Neurology Psychiatry; ATTEND Psychiatry & Neurology Psychiatry
PROC: GZHZZZZ Group Psychotherapy (ICD-10-PCS; principal; 2017-10-27)
DX: F31.2 Bipolar disorder, current episode manic severe with psychotic features (principal); R45.851 Suicidal ideations; F41.9 Anxiety disorder, unspecified; Z88.0 Allergy status to penicillin; G47.00 Insomnia, unspecified
CPT/HCPCS: 36415; 70551; 80053; 80061; 80164; 80307; 80320; 80329; 83036; 85025; 90853; 99222; 99231; 99232; 99233; 99238; 99284; A9270-GY; G0480